=== PATIENT | male | born 1960 | race Caucasian/White ===

== ENCOUNTER 2022-03-29 11:39 | Observation (INO) | payer OTHER, SELFPAY ==
[2022-03-29] VITALS (11 sets, daily range): BP systolic 132–158; BP diastolic 65–80; PULSE 79–94; RESP 14–30; TEMP 36.6–38.4; O2SAT 90–95; BMI 30.8
--- NOTE | ~2022-03-29 | XR_ITS ---
EXAMINATION: XR chest 2V DATE: 03/29/2022 12:23 INDICATION: COPD with cough and shortness of breath TECHNIQUE: PA and lateral views of the chest were obtained. COMPARISON: None FINDINGS: The lungs are clear with no focal airspace opacities, pulmonary edema, pleural effusion or pneumothor ax. The cardiomediastinal silhouette is normal. Mild to moderate thoracic spondylosis with mild anter ior wedging of a midthoracic vertebral body. IMPRESSION: 1. No acute cardiopulmonary disease. Reviewed, dictated and finalized at location A. 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
--- NOTE | 2022-03-29 12:01 | ECG_ITS ---
Measurements Intervals [place] Rate: 94 P: 45 ME: 181 QRS: 64 QRSD: 93 T: 57 QT: 309 QTc: 388 Interpretive Statements SINUS RHYTHM BASELINE ARTIFACT NORMAL ECG NO PREVIOUS ECG AVAILABLE FOR COMPARISON Electronically Signed On 03-29-2022 17:00:43 [employer] by Ford Germain M.D.
[2022-03-29 12:13] LABS: Basophils Percent Auto 0.4 % (0.2-1.2); Eosinophils Percent Auto 0.1 % (0-4.4); Hemoglobin 14.1 g/dL (14.0-18.0); Immature Granulocyte Absolute 0.04 K/mm3 (0.00-0.031); Immature Granulocyte Percent A 0.5 % (0-0.5); Lymphocytes Absolute Auto 0.72 K/mm3 (0.9-3.2); Lymphocytes Percent Auto 8.7 % (18.3-44.2); Mean Corpuscular HGB Conc 33.6 g/dl (32-36); Mean Corpuscular Hemoglobin 30.6 pg (26-34); Mean Corpuscular Volume 91.1 fl (80-100); Mean Platelet Volume 10.2 fl (7.4-10.4); Monocytes Absolute Auto 0.6 K/mm3 (0.1-0.6); Monocytes Percent Auto 6.8 % (2.6-8.5); Neutrophils Absolute Auto 6.9 K/mm3 (1.3-6.7); Neutrophils Percent Auto 83.5 % (45.5-73.1); Platelet Count Result 160 k/mm3 (150-375); Red Blood Count 4.61 M/mm3 (4.6-6.20); Red Cell Distribution Width 13.2 % (11.5-14.5); White Blood Count 8.3 K/mm3 (4.5-10.0)
[2022-03-29 12:23] LABS: Alanine Aminotransferase 19 U/L (6-50); Albumin Level 4.1 g/dL (3.5-5.1); Alkaline Phosphatase 55 U/L (38-126); Anion Gap 6 mmol/L (8-16); Aspartate Amino Transferase 27 U/L (17-59); Bilirubin,Total 0.5 mg/dL (0.2-1.3); Blood Urea Nitrogen 10 mg/dL (9-20); Calcium 8.2 mg/dL (8.4-10.2); Carbon Dioxide 29 mmol/L (22-30); Chloride 102 mmol/L (98-107); Estimated CRCL calculation 107 ml/min; Estimated Glomerular Filt Rate > 60; Glucose 101 mg/dL (65-110); Potassium 4.2 mmol/L (3.4-5.0); Sodium 137 mmol/L (137-145)
[2022-03-29 12:35] LABS: Influenza A QL RT-PCR Positive (Negative); Influenza B QL RT-PCR Negative (Negative); SARS-CoV-2 RNA PCR Negative
--- NOTE | 2022-03-29 12:50 | ED.GENADULT ---
HPI - General Adult General Chief complaint: Upper Respiratory Infection Stated complaint: Shorten of breath, difficulty breathing Time Seen by Provider: 03/29/22 12:27 History of Present Illness HPI narrative: 61-year-old male history of COPD presented with shortness of breath, cough, fevers chills. Per patient has been in his usual state of health until last night when he began feeling short of breath, fevers, chills, cough that is different from his usual, he took his COPD medications without improvement so decided to come in today for further evaluation. He reports that there are several members in the family with viral URI type symptoms. He reports chest pain with vigorous coughing, absent when he is not coughing. He denies nausea, vomiting, abdominal pain, dysuria, diarrhea. Past medical history: COPD Past surgical history: Denied Medications: Albuterol Allergies: No known drug allergies Social: Active smoking, denied recreational drugs Related Data Allergies Allergy/AdvReac Type Severity Reaction Status Date / Time No Known Allergies Allergy Verified 03/29/22 12:00 Review of Systems Review of Systems: See HPI PMFSH Comments See HPI Exam Narrative: APPEARANCE: Alert, calm and cooperative, no acute distress, phonating, sitting comfortably during visit HEAD: atraumatic EYES: Pupils equal round an reactive to light, extra ocular movements intact, no conjunctival injection NOSE: Normal no drainage NECK: Supple, without meningismus RESPIRATORY: Bilateral expiratory wheezes, no rales or rhonchi, mild tachypnea, saturating well on ambient air CARDIOVASCULAR: Regular rate and rhythm, no visible jugular venous distension; POCUS LVEF preserved, no evidence of right heart strain, no pericardial effusion, IVC collapsible, no B-lines bilaterally ABDOMINAL: Soft, nontender, nondistended, no guarding, no rebound/peritoneal signs, no costovertebral tenderness to palpation BACK: no midline tenderness to palpation, no step offs EXTREMITIES: No edema, palpable peripheral pulses, warm, well perfused, no tenderness to bilateral calves. NEURO: Alert, moving all extremities symmetrically SKIN:: Warm, dry. Normal color PSYCHIATRIC: Normal affect/mood Course Reevaluation(s) Reevaluation #1: Patient reassessed, improve respirations with treatments. Case discussed with hospitalist. Plan for medical admission for optimization communicated to patient and family, amenable for admission. Given acute nature of presenting disease process and potential for decompensation, the patient would benefit from medical admission for further optimization and management. Vital Signs Vital signs: Vital Signs Temperature 101.1 F H 03/29/22 11:44 Pulse Rate 92 03/29/22 11:44 Respiratory Rate 14 03/29/22 11:44 Blood Pressure 158/66 H 03/29/22 11:44 Pulse Oximetry 95 03/29/22 11:44 Temperature 101.1 F H 03/29/22 11:44 Pulse Rate 86 03/29/22 13:36 Respiratory Rate 16 03/29/22 13:36 Blood Pressure 132/74 03/29/22 13:16 Pulse Oximetry 92 03/29/22 13:16 Medical Decision Making MDM Narrative Medical decision making narrative: Medical Decision Making 61-year-old gentleman history of COPD presented with fevers, cough, shortness of breath. Physical exam notable for mild tachypnea, bilateral expiratory wheezes, vitals notable for febrile, remaining vitals within normal limits. Per my independent interpretation, ECG is normal sinus rhythm, intervals within normal limits; does not demonstrate evidence of STEMI, ST depressions, hyperacute T waves, deWiners, [place], [place]. Per my independent interpretation, xray of chest demonstrates no focal consolidation, no evidence of pulmonary congestion, no pneumothorax. Defer to radiologist final report. Patient found to be positive for influenza A. Impression: History and exam suggestive of COPD exacerbation secondary to viral URI. Pneumonia versus ACS versus myocarditis versus
[2022-03-29 13:03] LABS: NT Pro B Type Natriuretic Pept 471 pg/mL (5-100); Troponin I < 0.012 ng/mL (0.000-0.034)
[2022-03-29] MEDS: methylPREDNISolone SOD SUCC 125 MG VIAL IV PUSH (13:13)
[2022-03-29] MEDS: ALBUTEROL SULFATE NEB 2.5 MG/3 ML INH INHALATION ×2 (13:23)
[2022-03-29] MEDS: IPRATROPIUM BR 0.02% INH SOLN 0.5 MG/2.5 ML VIAL INHALATION (13:23)
[2022-03-29] MEDS: MAGNESIUM SULF 2 GM/WATER 50ML 2 GM/50 ML BAG IVPB (13:24)
[2022-03-29] MEDS: OSELTAMIVIR PHOSPHATE 75 MG CAPSULE PO (13:25)
--- NOTE | 2022-03-29 15:00 | PM.IMHP ---
H&P: HPI History of Present Illness Date/Time: 03/29/22 15:00 Chief Complaint: Shortness of breath. Narrative: This is a very pleasant 61-year-old male smoker with COPD, chronic respiratory failure on 2 liters nasal cannula while sleeping only, hypertension, and anxiety presented to the emergency department for evaluation of shortness of breath. He and his family members are in the area from [place] to be with family for the holidays. Over the last couple of days several family members have come down with upper respiratory symptoms, the patient included. He complains of chest congestion, cough productive of clear phlegm, fever, body aches, wheezing, and increasing shortness of breath over last 24 hours. He has been taking acetaminophen, ibuprofen, and [id number] cold and flu medication without a whole lot of benefit. Temperature was 101.1? on arrival to the ED and he tested positive for influenza A. He was given a DuoNeb, Solu-Medrol, and 2 gm magnesium due to significant wheezing with some improvement however he remained pretty short of breath and he is being admitted for further care. Review of Systems Review of Systems: Twelve systems were reviewed. He has had some mild chest tightness due to work of breathing but no exertional chest pain. Pleuritic pain. Appetite has been poor. No nausea, vomiting, or diarrhea. He has never required intubation for COPD exacerbations. No recent steroids or antibiotic use. Except as documented, all other systems were reviewed and are negative. [facility], [facility] Past Medical History Medical History (Updated 03/29/22 @ 21:36 by Kerrie Mi PA-C) Anxiety Chronic obstructive pulmonary disease Chronic respiratory failure with hypoxia, on home O2 therapy On 2 liters nasal cannula while sleeping. Hypertension Tobacco dependence Surgical History Surgical History (Updated 03/29/22 @ 21:32 by Kerrie Mi PA-C) History of hernia repair Family History Family History (Updated 03/29/22 @ 21:32 by Kerrie Mi PA-C) Mother Heart disease Social History Social History (Updated 03/29/22 @ 21:33 by Kerrie Mi PA-C) Social History: Surrogate medical decision maker: Cherelle Calderón, spouse. Code status: Full code. Smoking packs per day: 0.75 Smoking cigarettes per day: 15.0 Years smoked: 50 Smoking pack-years: 37.50 Smoking status: Current every day smoker Tobacco type: cigarettes Alcohol intake: former Substance use: never Lack of Transportation: No Lack of Food: Never True Current Housing: I Have Housing Concerned About Future Housing: No Difficulty Paying Gas/Electric Bills: No Difficulty Paying for Meds: No Currently Unemployed: No Education: High School Diploma/GED Difficulty w/ Childcare or Family Care: No Additional living arrangements comments: Lives outside [place], [place] with and children. Additional occupation/education comments: Works in [employer] for [employer]. Spiritual care concerns: No Meds Home Medications and Allergies Home Medications Medication Instructions Recorded Confirmed Type albuterol 90 mcg/actuation aerosol 90 mcg inhalation PRN PRN 03/29/22 03/29/22 History inhaler Shortness Of Breath Or Wheezing nadolol 80 mg tablet (Corgard) 80 mg PO DAILY 03/29/22 03/29/22 History umeclidinium 62.5 mcg-vilanterol 1 ea inhalation DAILY 03/29/22 03/29/22 History 25 mcg/actuation powdr for inhalation (Anoro Ellipta) venlafaxine 37.5 mg 37.5 mg PO DAILY 03/29/22 03/29/22 History capsule,extended release 24 hr Allergies Allergy/AdvReac Type Severity Reaction Status Date / Time No Known Allergies Allergy Verified 03/29/22 12:00 Vital Signs Vital Signs - 24 hr 03/29/22 11:44 03/29/22 12:30 03/29/22 13:18 Temperature 101.1 F H Pulse Rate 92 86 85 Respiratory Rate 14 24 H 22 H Blood Pressure 158/66 H 137/80 Pulse Oximetry 95 94 03/29/22 13:36
[2022-03-29] MEDS: OSELTAMIVIR PHOSPHATE ORAL SUSP 75 MG/12.5 ML SYRINGE PO (23:05)
[2022-03-29] MEDS: methylPREDNISolone SOD SUCC 125 MG VIAL 60 MG IV PUSH (23:05)
[2022-03-30] MEDS: IPRATROPIUM BR 0.02% INH SOLN 0.5 MG/2.5 ML VIAL INHALATION ×2 (02:43→08:11)
[2022-03-30] MEDS: ALBUTEROL SULFATE NEB 2.5 MG/3 ML INH INHALATION ×2 (02:43→08:11)
[2022-03-30 02:47] VITALS: PULSE 81; RESP 18
[2022-03-30 02:48] VITALS: O2SAT 93
[2022-03-30 04:50] VITALS: BP 127/80; PULSE 85; RESP 18; TEMP 36.5; O2SAT 92
[2022-03-30] MEDS: methylPREDNISolone SOD SUCC 125 MG VIAL 60 MG IV PUSH (05:03)
[2022-03-30 06:23] LABS: Hematocrit 41.8 % (42.0-52.0); Hemoglobin 13.9 g/dL (14.0-18.0); Mean Corpuscular HGB Conc 33.3 g/dl (32-36); Mean Corpuscular Hemoglobin 29.8 pg (26-34); Mean Corpuscular Volume 89.5 fl (80-100); Mean Platelet Volume 10.2 fl (7.4-10.4); Platelet Count Result 172 k/mm3 (150-375); Red Blood Count 4.67 M/mm3 (4.6-6.20); Red Cell Distribution Width 13.2 % (11.5-14.5); White Blood Count 11.1 K/mm3 (4.5-10.0)
[2022-03-30 06:35] LABS: Anion Gap 5 mmol/L (8-16); Blood Urea Nitrogen 12 mg/dL (9-20); Calcium 8.3 mg/dL (8.4-10.2); Carbon Dioxide 29 mmol/L (22-30); Chloride 101 mmol/L (98-107); Estimated CRCL calculation 108 ml/min; Estimated Glomerular Filt Rate > 60; Glucose 149 mg/dL (65-110); Magnesium 2.3 mg/dL (1.6-2.3); Potassium 4.6 mmol/L (3.4-5.0); Sodium 135 mmol/L (137-145)
[2022-03-30] MEDS: UMECLIDINIUM/VILANTEROL 62.5-25 MCG ELLIPTA 1 PUFF INHALATION (08:12)
[2022-03-30 08:15] VITALS: PULSE 80; RESP 20
[2022-03-30 08:30] VITALS: PULSE 84; RESP 20
[2022-03-30] MEDS: AZITHROMYCIN 250 MG TABLET 500 MG PO (08:36)
[2022-03-30] MEDS: ACETAMINOPHEN 325 MG TABLET 650 MG PO (08:36)
[2022-03-30] MEDS: VENLAFAXINE HCL XR 37.5 MG CAP PO (08:36)
[2022-03-30] MEDS: OSELTAMIVIR PHOSPHATE ORAL SUSP 75 MG/12.5 ML SYRINGE PO (08:36)
[2022-03-30 08:38] VITALS: PULSE 78
[2022-03-30] MEDS: nadoloL 20 MG TABLET 80 MG PO (08:38)
--- NOTE | 2022-03-30 10:46 | PM.DS ---
DS: Admitting Diagnosis Discharge Date March 30, 2022 Admitting Diagnosis COPD, influenza DS: Discharge Diagnosis Discharge Diagnosis (1) Influenza A: Code(s): J10.1 - Influenza due to other identified influenza virus with other respiratory manifestations Status: Acute Assessment and Plan: Supportive care. He has been started on Tamiflu. (2) Acute exacerbation of chronic obstructive pulmonary disease: Code(s): J44.1 - Chronic obstructive pulmonary disease with (acute) exacerbation Status: Acute Assessment and Plan: Precipitated by influenza an ongoing tobacco abuse. Continue scheduled bronchodilators and Solu-Medrol. (3) Tobacco dependence: Code(s): F17.200 - Nicotine dependence, unspecified, uncomplicated Status: Acute Assessment and Plan: Smoking cessation is imperative in was discussed. He declines the need for nicotine patch. (4) Hypertension: Code(s): I10 - Essential (primary) hypertension Status: Acute Assessment and Plan: Blood pressures were reviewed and they are stable. Continue antihypertensives and monitor. (5) Chronic respiratory failure with hypoxia, on home O2 therapy: Code(s): J96.11 - Chronic respiratory failure with hypoxia; Z99.81 - Dependence on supplemental oxygen Status: Acute Assessment and Plan: Patient wears 2 liters while sleeping. (6) Anxiety: Code(s): F41.9 - Anxiety disorder, unspecified Status: Acute Assessment and Plan: Continue venlafaxine. DS: Summary Hospital Course Hospital Course: Patient was prepped for some shortness of breath. Did not require any oxygen. Vitals are stable. He does have history of smoking and underlying COPD. Prednisone discharge azithromycin discharged on Tamiflu for influenza. Medically stable patient can be discharged Time Spent with Patient Time attestation: Total time spent providing and/or coordinating discharge services: Exam Narrative: General: Moderately ill-appearing male sitting up in bed. Weight: 92 kilograms. BMI: 30.8. HEENT: PERRL, EOMI. Sclera anicteric. Tacky mucous membranes. Neck: Supple. No JVD or lymphadenopathy. Respiratory: Respirations appear nonlabored though he has audible wheezing. He is speaking in full sentences. Lung sounds are diminished throughout with coarse rhonchi that improve with cough and diffuse end-expiratory wheezing. Cardiovascular: Regular rate and rhythm with S1-S2. Gastrointestinal: Abdomen is soft, nontender, and nondistended with positive bowel sounds. Skin: Warm. Patient is sweating following defervescence. Extremities: No cyanosis, clubbing, or edema. Radial and pedal pulses intact. Negative Annemarie sign. Neurological: Alert. Cranial nerves 2-12 are grossly intact. No gross focal deficits to casual conversation. Psychiatric: Pleasant and cooperative with normal mood and affect. Judgment and insight intact. DS: Data Data Completed and Pending Labs on day of discharge: Labs from last 24 hours 03/30/22 03/30/22 03/29/22 06:10 06:10 12:03 WBC 11.1 H RBC 4.67 Hgb 13.9 L Hct 41.8 L MCV 89.5 MCH 29.8 MCHC 33.3 RDW 13.2 Plt Count 172 MPV 10.2 Immature Gran % (Auto) Neut % (Auto) Lymph % (Auto) [place] % (Auto) Eos % (Auto) Baso % (Auto) Lymph # (Auto) [place] # (Auto) Eos # (Auto) Baso # (Auto) Abs Immat Gran (auto) Absolute Neuts (auto) Absolute Nucleated RBC Nucleated RBC % Sodium 135 L Potassium 4.6 Chloride 101 Carbon Dioxide 29 Anion Gap 5 L BUN 12 Creatinine 0.70 Estim Creat Clear Calc 108 Estimated GFR > 60 Glucose 149 H Calcium 8.3 L Magnesium 2.3 Total Bilirubin AST ALT Alkaline Phosphatase Troponin I NT-Pro-B Natriuret Pep Cancelled Total Protein Albumin Influenza A (RT-PCR) Influenza B (RT-PCR)
== END 2022-03-30 12:44 | disposition home or self-care (01) ==
LOC: ANHED 15:07 → ANH3MED 20:41
PROVIDERS: Emergency Medicine; Physician Assistant; Admitting Provider Family Medicine; Emergency Provider Emergency Medicine; Visit Provider Chiropractor
DX: J10.1 Influenza due to other identified influenza virus with other respiratory manifestations (principal); J44.1 Chronic obstructive pulmonary disease with (acute) exacerbation; J96.10 Chronic respiratory failure, unspecified whether with hypoxia or hypercapnia; I10 Essential (primary) hypertension; F41.9 Anxiety disorder, unspecified; Z20.822 Contact with and (suspected) exposure to COVID-19; F17.210 Nicotine dependence, cigarettes, uncomplicated; Z79.51 Long term (current) use of inhaled steroids; Z79.1 Long term (current) use of non-steroidal anti-inflammatories (NSAID); Z82.49 Family history of ischemic heart disease and other diseases of the circulatory system; Z79.899 Other long term (current) drug therapy
CPT/HCPCS: 36415; 71046; 80048; 80053; 83735; 83880; 84484; 85025; 85027; 87636; 93005; 94640; 96365; 96367; 96375; 96376; 99285; A9270; G0378; J0456; J2930; J3475